=== PATIENT | female | born 1950 | race Caucasian/White ===

== ENCOUNTER → 2017-04-24 | Outpatient (CLI) | payer BC ==
--- NOTE | 2017-04-24 12:50 | RAD ---
DATE: 04/24/2017 EXAM: MAMMO ALEXANDER SCREENING BILATERAL Bilateral digital screening mammography to include digital breast tomosynthesis (3D mammography) HISTORY: Screening study. COMPARISON: 04/18/2016 This study was interpreted with the benefit of Computerized Aided Detection (CAD). FINDINGS: Digital MLO and CC mammograms of both breasts were obtained. Additionally digital breast tomosynthesis (3D mammography) images of both breasts in the MLO and CC projections were performed. Comparison study is dated 04/18/2016. The breast parenchyma is heterogeneously dense which can obscure a lesion on mammography (breast density code C). No spiculated mass is seen. No malignant appearing calcification or area of architectural distortion is noted. Digital breast tomosynthesis images demonstrate no spiculated mass or malignant appearing calcification. Since the previous examination there has been no significant interval change. IMPRESSION: BI-RADS Category 1, negative. There is no mammographic evidence malignancy. Routine annual screening mammography is recommended for follow-up. BI-RADS CATEGORY: 1 NEGATIVE RECOMMENDED FOLLOW-UP: 12M 12 MONTH FOLLOW-UP PQRS compliance statement: Patient information was entered into a reminder system with a target due date 04/24/2018 for the next mammogram. Mammography is a sensitive method for finding small breast cancers, but it does not detect them all and is not a substitute for careful clinical examination. A negative mammogram does not negate a clinically suspicious finding and should not result in delay in biopsying a clinically suspicious abnormality. "Our facility is accredited by the [employer] Mammography [employer]."
== END | disposition home or self-care (01) ==
LOC: MAMMO 11:05
PROVIDERS: ATTEND Nurse Practitioner Family
DX: Z12.31 Encounter for screening mammogram for malignant neoplasm of breast (principal)
CPT/HCPCS: 77063; G0202; 77067

== ENCOUNTER → 2018-04-16 | Outpatient (CLI) | payer MEDICARE, OTHER ==
[2018-04-16 12:36] LABS: BASO % 1 % (0-3); EOS # 0.1 x10^3/uL (0.0-0.7); EOS % 2 % (0-3); HEMATOCRIT 46.3 % (36.0-47.0); HEMOGLOBIN 15.7 g/dL (12.0-15.5); LYMPH # 2.1 x10^3/uL (1.0-4.8); LYMPH % 32 % (24-48); MEAN CORPUSCULAR HEMOGLOBIN 33 pg (25-35); MEAN CORPUSCULAR HGB CONC 34 g/dL (31-37); MEAN CORPUSCULAR VOLUME 96 fL (79-100); MONO # 0.5 x10^3/uL (0.0-1.1); MONO % 8 % (0-9); NEUT # 3.7 x10^3uL (1.8-7.7); NEUT % 57 % (31-73); PLATELET COUNT 267 x10^3/uL (140-400); RED BLOOD COUNT 4.81 x10^6/uL (3.50-5.40); RED CELL DISTRIBUTION WIDTH 12.9 % (11.5-14.5); WHITE BLOOD COUNT 6.5 x10^3/uL (4.0-11.0)
[2018-04-16 12:55] LABS: ALBUMIN 3.5 g/dL (3.4-5.0); ALBUMIN/GLOBULIN RATIO 0.9 (1.0-1.7); CALCIUM 8.8 mg/dL (8.5-10.1); GFR 55.6; POTASSIUM 4.1 mmol/L (3.5-5.1); TOTAL BILIRUBIN 0.7 mg/dL (0.2-1.0); TOTAL PROTEIN 7.2 g/dL (6.4-8.2)
[2018-04-17 03:09] LABS: PROGESTERONE 19.8 ng/mL (.); T3 TOTAL 120 ng/dL (71-180); TESTOSTERONE TOTAL 22 ng/dL (3-41)
[2018-04-17 04:12] LABS: HEMOGLOBIN A1C 4.9 % (4.8-5.6)
[2018-04-17 05:09] LABS: THYROXINE 8.6 ug/dL (4.5-12.0)
[2018-04-18 16:08] LABS: DHEA 164 ng/dL (31-701)
[2018-04-19 08:14] LABS: THYROID STIM HORMONE (TSH) 3.389 uIU/mL (0.358-3.740)
== END | disposition home or self-care (01) ==
LOC: LAB 11:49
PROVIDERS: ATTEND General Practice
DX: I10 Essential (primary) hypertension (principal); E03.9 Hypothyroidism, unspecified; E55.9 Vitamin D deficiency, unspecified; F41.9 Anxiety disorder, unspecified; N95.1 Menopausal and female climacteric states; R79.89 Other specified abnormal findings of blood chemistry
CPT/HCPCS: 36415; 80053; 80061; 82306; 82626; 82670; 82679; 83036; 84144; 84403; 84436; 84443; 84480; 85025

== ENCOUNTER → 2018-05-29 | Outpatient (CLI) | payer MEDICARE ==
--- NOTE | 2018-05-29 13:02 | RAD ---
DATE: 05/29/2018 EXAM: MAMMO ALEXANDER SCREENING BILATERAL HISTORY: Routine screening COMPARISON: 04/24/2017 This study was interpreted with the benefit of Computerized Aided Detection (CAD). Breast Density: HETERO The breast parenchyma is heterogenously dense, which could reduce sensitivity of mammography. Breast parenchyma level C. FINDINGS: 2-D and 3-D tomosynthesis imaging was performed in CC and MLO projections. There are small benign-appearing lymph node type densities present laterally in both breasts. No new or enlarging breast densities are seen. No suspicious microcalcifications are evident. IMPRESSION: There is no mammographic evidence of malignancy in either breast. BI-RADS CATEGORY: 2 BENIGN FINDING(S) RECOMMENDED FOLLOW-UP: 12M 12 MONTH FOLLOW-UP PQRS compliance statement: Patient information was entered into a reminder system with a target due date for the next mammogram. Mammography is a sensitive method for finding small breast cancers, but it does not detect them all and is not a substitute for careful clinical examination. A negative mammogram does not negate a clinically suspicious finding and should not result in delay in biopsying a clinically suspicious abnormality. "Our facility is accredited by the [employer] Mammography [employer]."
== END | disposition home or self-care (01) ==
LOC: MAMMO 08:39
PROVIDERS: ATTEND General Practice
DX: Z12.31 Encounter for screening mammogram for malignant neoplasm of breast (principal)
CPT/HCPCS: 77063; 77067

== ENCOUNTER → 2019-06-03 | Outpatient (CLI) | payer MEDICARE ==
--- NOTE | 2019-06-03 16:52 | RAD ---
DATE: 06/03/2019 EXAM: MAMMO ALEXANDER SCREENING BILATERAL HISTORY: Asymptomatic screening mammogram COMPARISON: Bilateral mammogram from 05/29/2018, 04/24/2017 at 04/18/2016 This study was interpreted with the benefit of Computerized Aided Detection (CAD). Breast Density: HETERO The breast parenchyma is heterogenously dense, which could reduce sensitivity of mammography. Breast parenchyma level C. FINDINGS: Bilateral CC and MLO views of the breasts were performed. Bilateral breast tomosynthesis was performed in CC and MLO projections. Right breast: New circumscribed breast mass in the upper outer left breast at posterior depth, approximately 8 cm from the nipple. Recommend spot compression CC and MLO views as well as targeted ultrasound. Left breast: There are no suspicious microcalcifications, masses or areas of architectural distortion. Left breast findings are stable from prior mammogram. IMPRESSION: 1. Incomplete right mammogram. 2. Negative left mammogram. BI-RADS CATEGORY: 0 INCOMPLETE: NEEDS ADDITIONAL IMAGING EVALUATION AND/OR PRIOR MAMMOGRAMS FOR COMPARISON. RECOMMENDED FOLLOW-UP: ADD ADDITIONAL IMAGING PQRS compliance statement: Mammography is a sensitive method for finding small breast cancers, but it does not detect them all and is not a substitute for careful clinical examination. A negative mammogram does not negate a clinically suspicious finding and should not result in delay in biopsying a clinically suspicious abnormality. "Our facility is accredited by the [employer] Mammography [employer]."
== END | disposition home or self-care (01) ==
LOC: MAMMO 08:37
PROVIDERS: ATTEND General Practice
DX: Z12.31 Encounter for screening mammogram for malignant neoplasm of breast (principal)
CPT/HCPCS: 77063; 77067

== ENCOUNTER → 2019-06-11 | Outpatient (CLI) | payer MEDICARE ==
--- NOTE | 2019-06-11 15:12 | RAD ---
DATE: 06/11/2019 EXAM: DIGITAL DIAGNOSTIC RT, BREAST RIGHT HISTORY: Abnormal mammogram COMPARISON: 04/16/2015, 04/18/2016, 04/24/2017, 05/29/2018, and 06/03/2019 screen mammographic exams This study was interpreted with the benefit of Computerized Aided Detection (CAD). Breast Density: HETERO The breast parenchyma is heterogenously dense, which could reduce sensitivity of mammography. Breast parenchyma level C. FINDINGS: Upon spot compression imaging of the right outer CC view and right upper MLO view, the focal asymmetry described does not persist. There is a small mass identified which is somewhat low to intermediate density. Limited ultrasound imaging of the right upper-outer breast demonstrates a cystic structure with minimal background enhancement and suggestion of internal echoes. This appears to be well circumscribed. Margins are smooth. It measures 0.84 cm x 0.7 cm x 0.6 cm tall. No flow within it. It is at the 10:00 region 5 cm from nipple. IMPRESSION: Complicated right upper outer breast 10:00 region cyst. BI-RADS CATEGORY: 3 PROBABLY BENIGN FINDING(S)-SHORT INTERVAL FOLLOW-UP SUGGESTED RECOMMENDED FOLLOW-UP: 6M 6 MONTH FOLLOW-UP. Ultrasound exam in 6 months is recommended to assess stability. Mammography may be performed at that time if needed. PQRS compliance statement: Patient information was entered into a reminder system with a target due date for the next mammogram. Mammography is a sensitive method for finding small breast cancers, but it does not detect them all and is not a substitute for careful clinical examination. A negative mammogram does not negate a clinically suspicious finding and should not result in delay in biopsying a clinically suspicious abnormality. "Our facility is accredited by the [employer] Mammography Program."
== END | disposition home or self-care (01) ==
LOC: MAMMO 13:42
PROVIDERS: ATTEND General Practice
DX: N60.01 Solitary cyst of right breast (principal)
CPT/HCPCS: 76641; 77065

== ENCOUNTER → 2019-11-20 | Outpatient (CLI) | payer MEDICARE ==
--- NOTE | 2019-11-21 16:38 | RAD ---
Examination: MAMMO ALEXANDER DIAG RT, BREAST RIGHT History: Abnormal mammogram and ultrasound exam the right breast. Follow-up. Comparison/Correlation: Right breast ultrasound exam 06/11/2019, screening exams 04/18/2016, 04/24/2017, 05/29/2018, 06/03/2019. Right diagnostic mammographic images 06/11/2019. FINDINGS: Full-field digital diagnostic mammographic exam of the right breast was performed. MLO and CC projections were provided. Tomosynthesis was performed. CAD was utilized. The breasts are heterogeneously dense, which may obscure small masses. Benign appearing axillary lymph node(s) are present. There are no suspicious calcification clusters. No new masses or new distortion. Limited right breast ultrasound exam was performed. There is a cyst again seen at the 10:00 region 5 cm from the nipple measuring 1.3 cm x 0.7 x 0.7 cm tall. No associated mass component in the interval. There is increased size since the previous exam. Subtle internal echoes are suggested within it. IMPRESSION: Right breast - BI-RADS Category: 3: Probably Benign. Six-month follow-up diagnostic mammographic exam at the time of annual imaging with ultrasound of the right breast recommended to assess stability. Electronically signed by: Gorge Kirk MD (11/21/2019 4:35 PM) [id number]
== END | disposition home or self-care (01) ==
LOC: MAMMO 12:48
PROVIDERS: ATTEND General Practice
DX: N60.01 Solitary cyst of right breast (principal)
CPT/HCPCS: 76641; 77065; G0279; 77061

== ENCOUNTER → 2020-06-11 | Outpatient (CLI) | payer MEDICARE ==
--- NOTE | 2020-06-11 17:45 | RAD ---
Examination: 1. Bilateral digital diagnostic mammogram. 2. Targeted right breast ultrasound. INDICATION: 69-year-old woman due for bilateral mammographic screening presents for short-term follow-up probably benign right breast cysts. COMPARISON: Bilateral mammogram of 06/03/2019 and right diagnostic mammogram of 06/11/2019. TECHNIQUE: CC and MLO views of both breasts were obtained with 2-D and 3-D technique and reviewed with computer-aided detection. Targeted ultrasound of the right breast was also performed focused in the area of mammographic interest. FINDINGS: Heterogeneously dense breast parenchyma. The left mammogram is negative. Right mammogram shows a nodular parenchymal pattern compatible benign cystic change. No developing mass, suspicious calcification or architectural distortion is evident Targeted ultrasound of the right breast identifies a sonographically benign 10 mm cyst at the right 10:00 position 5 cm from the nipple that correlates with the mammographic and sonographic finding identified early and recommended for follow-up. It has decreased slightly from 1.3 cm as noted on the previous exam. Incidental sonographically benign cyst at the right 9:00 position 1.5 cm from the nipple measuring 1.1 cm was also noted. IMPRESSION: Benign findings on bilateral mammogram and targeted right breast ultrasound. No evidence of malignancy. Recommend return to routine screening next due in one year. BI-RADS Category 2 Benign findings Patient entered into a reminder system with targeted due date for next mammogram Electronically signed by: Marek Petersen MD (06/11/2020 5:43 PM) [id number]
== END ==
LOC: MAMMO 13:52
PROVIDERS: ATTEND Family Medicine
DX: R92.2 Inconclusive mammogram (principal)
CPT/HCPCS: 76641; 77066; G0279; 77062

== ENCOUNTER → 2021-06-21 | Outpatient (CLI) | payer MEDICARE ==
--- NOTE | 2021-06-22 11:32 | RAD ---
Bilateral digital screening mammogram to include digital breast tomosynthesis (3-D mammography) 06/21 CLINICAL HISTORY: Screening study. Digital MLO and CC mammograms of both breasts were obtained. Additionally digital breast tomosynthesi s images (3-D mammography) of both breasts in the CC and MLO projections were obtained. Comparison studies are dated 06/11/2020 and 06/03/2019. The breast parenchyma is heterogeneously dense which could obscure a lesion on mammography (breast d ensity C). Well-defined benign-appearing masses are seen in the right breast consistent with the lana ent's history of cysts, unchanged. No spiculated mass is seen. No malignant appearing calcification o r area of architectural distortion is noted. Digital breast tomosynthesis images demonstrate no spiculated mass. No malignant appearing calcificat ion is seen. Impression: BI-RADS Category 1: Negative. There is no mammographic evidence of malignancy. Routine y early screening mammography is recommended for follow-up. This examination was reviewed with the aid of computer-aided detection. A mammogram does not have 100% sensitivity and therefore a negative imaging study should not delay fu rther work up of a suspicious abnormality. Patient information is entered into the reminder system with a target due date for the next screening mammogram of 06/21/2022. "Our facility is accredited by the [employer] Mammography Program." Electronically signed by: Rodo Poole MD (06/22/2021 11:29 AM) [id number]
== END ==
LOC: MAMMO 15:10
PROVIDERS: ATTEND Family Medicine
DX: Z12.31 Encounter for screening mammogram for malignant neoplasm of breast (principal)
CPT/HCPCS: 77063; 77067